=== PATIENT | female | born 1990 | race Asian ===

== ENCOUNTER 2020-02-01 05:12 | Emergency (ER) | payer OTHER ==
[~2020-02-01] VITALS: Ht 137.2 cm; Wt 40.8 kg
[~2020-02-01 05:12] MED LIST: IBUP800 PO; Percocet 5-3251 EACH PO; Verotin-Gr Cap1 EACH PO
[2020-02-01 06:16] LABS: BASOPHILS ABSOLUTE AUTO 0.07 K/mm3 (0.00-0.23); BASOPHILS PERCENT AUTO 1 % (0-2); EOSINOPHILS ABSOLUTE AUTO 0.31 K/mm3 (0.00-0.68); EOSINOPHILS PERCENT AUTO 6 % (0-6); Hematocrit 40.4 % (33.0-51.0); Hemoglobin 13.6 g/dL (11.5-16.0); IMMATURE GRAN ABSOLUTE AUTO 0.02 K/mm3 (0.00-0.10); IMMATURE GRAN PERCENT AUTO 0 % (0-1); LYMPHOCYTES PERCENT AUTO 30 % (21-46); MONOCYTES ABSOLUTE AUTO 0.42 K/mm3 (0.16-1.47); MONOCYTES PERCENT AUTO 8 % (4-13); Mean Corpuscular HGB 29.5 pg (26.0-34.0); Mean Corpuscular HGB Conc 33.7 g/dL (31.5-36.5); Mean Corpuscular Volume 88 fL (80-100); Mean Platelet Volume 10.9 fL (9.1-12.4); NEUTROPHILS ABSOLUTE AUTO 2.75 K/mm3 (1.96-9.15); NEUTROPHILS PERCENT AUTO 54 % (41-73); Platelet Count 248 K/mm3 (150-400); RDW Coefficient Variation 11.5 % (11.7-14.2); RDW Standard Deviation 36.6 fL (35.1-46.3); Red Blood Cell Count 4.61 M/mm3 (3.80-5.20); White Blood Cell Count 5.07 K/mm3 (4.00-11.30)
[2020-02-01 06:28] LABS: Alanine Aminotransfer (ALT/SGP 32 U/L (12-78); Albumin, Blood 4.1 g/dL (3.4-5.0); Albumin/Globulin Ratio 1.2 (0.8-1.8); Alk Phos 90 U/L (50-136); Anion Gap 5 mmol/L (6-16); Aspartate Aminotrans (AST/SGOT 32 U/L (12-37); Bilirubin, Total 0.2 mg/dL (0.1-1.0); Blood Urea Nitrogen 14 mg/dL (8-24); Bun/Creatinine Ratio 17.8 (12.0-20.0); CO2, Blood 28 mmol/L (21-32); Calcium, Blood 8.7 mg/dL (8.5-10.1); Chloride, Blood 107 mmol/L (98-108); Creatinine, Blood 0.79 mg/dL (0.40-1.00); Globulin, Blood 3.4 g/dL (2.2-4.0); Glomerular Filtration Rate >60 (60-); Glucose, Blood 89 mg/dL (70-99); Potassium, Blood 3.8 mmol/L (3.5-5.5); Sodium, Blood 140 mmol/L (136-145); Total Protein, Blood 7.5 g/dL (6.4-8.2)
[2020-02-01 06:44] LABS: Source, Urine Voided
[2020-02-01 06:51] LABS: Bilirubin, Urine Neg (Neg); Blood, Urine 3+ (Neg); Glucose Qualitative, Urine Neg (Neg); Ketones, Urine Neg (Neg); Leukocyte Esterase, Urine Neg (Neg); Nitrite, Urine Neg (Neg); Protein, Urine Neg (Neg); Urobilinogen, Urine NORM (Normal)
[2020-02-01 07:06] LABS: Appearance, Urine Clear (Clear); Color, Urine Yellow (P-Yellow)
[2020-02-01 07:08] LABS: Bacteria Mod /hpf; Squamous Epithelial Cells Few /hpf (Few); White Blood Cells, Urine 0-2 /hpf (0-5)
== END 2020-02-01 07:29 | disposition home or self-care (01) ==
LOC: ER 05:12
PROVIDERS: Emergency Medicine
DX: R10.84 Generalized abdominal pain (principal); R10.32 Left lower quadrant pain
CPT/HCPCS: 36415; 80053; 81001; 81025; 85025; 87086; 96361; 96374; 99284-25; J2405; J7030

== ENCOUNTER 2022-09-23 06:47 | Emergency (ER) | payer OTHER ==
[~2022-09-23] VITALS: Ht 134.6 cm; Wt 44.9 kg
[2022-09-23 08:58] LABS: Influenza A, PCR NEGATIVE (NEGATIVE); Influenza B, PCR NEGATIVE (NEGATIVE); Resp Syncytial Virus, PCR NEGATIVE (NEGATIVE); SARS-Cov-2 (COVID-19) PCR, MMC NEGATIVE (NEGATIVE)
[2022-09-23] MEDS ORDERED: METO10 PO (09:11)
== END 2022-09-23 09:21 | disposition home or self-care (01) ==
LOC: ER 06:47
PROVIDERS: Student in an Organized Health Care Education/Training Program
DX: O99.511 Diseases of the respiratory system complicating pregnancy, first trimester (principal); J06.9 Acute upper respiratory infection, unspecified; O98.511 Other viral diseases complicating pregnancy, first trimester; B34.9 Viral infection, unspecified; O99.891 Other specified diseases and conditions complicating pregnancy; R51.9 Headache, unspecified; Z20.822 Contact with and (suspected) exposure to COVID-19; Z3A.11 11 weeks gestation of pregnancy
CPT/HCPCS: 0241U; A9270

== ENCOUNTER 2023-04-06 21:59 | Inpatient (IN) | payer OTHER ==
[~2023-04-06] VITALS: Ht 147.3 cm; Wt 56.8 kg
[~2023-04-06 21:59] MED LIST changes: +METO10 PO
[2023-04-06 22:16] VITALS: BP 107/59
[2023-04-07] VITALS (50 sets, daily range): BP systolic 40–138; BP diastolic 20–112
[2023-04-07 00:02] LABS: BASOPHILS ABSOLUTE AUTO 0.04 K/mm3 (0.00-0.23); BASOPHILS PERCENT AUTO 1 % (0-2); EOSINOPHILS ABSOLUTE AUTO 0.17 K/mm3 (0.00-0.68); EOSINOPHILS PERCENT AUTO 2 % (0-6); Hematocrit 34.8 % (33.0-51.0); Hemoglobin 11.9 g/dL (11.5-16.0); IMMATURE GRAN ABSOLUTE AUTO 0.07 K/mm3 (0.00-0.10); IMMATURE GRAN PERCENT AUTO 1 % (0-1); LYMPHOCYTES ABSOLUTE AUTO 1.53 K/mm3 (0.84-5.20); LYMPHOCYTES PERCENT AUTO 22 % (21-46); MONOCYTES ABSOLUTE AUTO 0.72 K/mm3 (0.16-1.47); MONOCYTES PERCENT AUTO 10 % (4-13); Mean Corpuscular HGB 29.8 pg (26.0-34.0); Mean Corpuscular HGB Conc 34.2 g/dL (31.5-36.5); Mean Corpuscular Volume 87 fL (80-100); Mean Platelet Volume 11.4 fL (9.1-12.4); NEUTROPHILS ABSOLUTE AUTO 4.46 K/mm3 (1.96-9.15); NEUTROPHILS PERCENT AUTO 64 % (41-73); Platelet Count 177 K/mm3 (150-400); RDW Coefficient Variation 12.5 % (11.7-14.2); RDW Standard Deviation 39.9 fL (35.1-46.3); White Blood Cell Count 6.99 K/mm3 (4.00-11.30)
[2023-04-07] MEDS ORDERED: PRENATAL TABLE1 EAC2 PO (00:12)
[2023-04-07 02:57] LABS: BASOPHILS ABSOLUTE AUTO 0.08 K/mm3 (0.00-0.23); BASOPHILS PERCENT AUTO 1 % (0-2); EOSINOPHILS ABSOLUTE AUTO 0.09 K/mm3 (0.00-0.68); EOSINOPHILS PERCENT AUTO 1 % (0-6); Hematocrit 23.1 % (33.0-51.0); Hemoglobin 7.8 g/dL (11.5-16.0); IMMATURE GRAN ABSOLUTE AUTO 0.13 K/mm3 (0.00-0.10); IMMATURE GRAN PERCENT AUTO 1 % (0-1); LYMPHOCYTES ABSOLUTE AUTO 2.36 K/mm3 (0.84-5.20); LYMPHOCYTES PERCENT AUTO 17 % (21-46); MONOCYTES ABSOLUTE AUTO 0.79 K/mm3 (0.16-1.47); MONOCYTES PERCENT AUTO 6 % (4-13); Mean Corpuscular HGB 30.2 pg (26.0-34.0); Mean Corpuscular HGB Conc 33.8 g/dL (31.5-36.5); Mean Corpuscular Volume 90 fL (80-100); Mean Platelet Volume 11.3 fL (9.1-12.4); NEUTROPHILS ABSOLUTE AUTO 10.83 K/mm3 (1.96-9.15); NEUTROPHILS PERCENT AUTO 76 % (41-73); Platelet Count 175 K/mm3 (150-400); RDW Coefficient Variation 12.7 % (11.7-14.2); Red Blood Cell Count 2.58 M/mm3 (3.80-5.20); White Blood Cell Count 14.28 K/mm3 (4.00-11.30)
--- NOTE | 2023-04-07 03:09 | NUR ---
LATE ENTRY: SUMMARY: PLACENTA DELIVERS AT 0220, 56 MIN AFTER DELIVERS. RETAINED PIECE OF PLACENTA IS NOTED BY PROVIDER AND ADDITIONAL HELP IS CALLED TO THE BEDSIDE. DR LUCAS, ANESTHESIA, AND OR TEAM ARE CALLED IN AND OVEN LOADER IS CALLED FOR ADDITIONAL ASSISTANCE. 2ND IV IS PLACED VIA US WHILE PITOCIN AND LR ARE BOLUSED. PT'S MENTATION CHANGES, BUT SHE CONTINUES TO RESPOND TO VOICE. WARM BLANKETS AND BEAR HUGGER FOR WARMTH. BLOOD TRANSFUSION STARTED AND ADDITIONAL UNITS ARE ORDERED BY PROVIDER. SEE OVEN LOADER RECORD. PT IS TRANSPORTED TO OR VIA HOSPITAL BED.
--- NOTE | 2023-04-07 04:19 | NUR ---
LATE ENTRY: PT ARRIVES TO ICU 16 FOR PACU RECOVERY FOLLOWING SURGERY FOR UTERINE INVERSION. REPORT IS RECEIVED FROM DR. HARVEY. PT IS PALCED ON MONITORS AND BLEEDING IS ASSESSED. SCANT BLEEDING FROM VAGINA NOTED. BEAR HUGGER PLACED.
--- NOTE | 2023-04-07 04:53 | NUR ---
LATE ENTRY: DR LUCAS CALLED FOR ORDER CLARIFICATION. NEW ORDERS RECEIVED.
--- NOTE | 2023-04-07 05:49 | NUR ---
LATE ENTRY: DR LUCAS CALLED FOR ORDER CLARIFICATION FOR BLOOD PRODUCTS. WILL GIVE 4TH UNIT PRBC'S, AND 2 UNITS FFP.
[2023-04-07 06:21] LABS: BASOPHILS ABSOLUTE AUTO 0.04 K/mm3 (0.00-0.23); BASOPHILS PERCENT AUTO 0 % (0-2); EOSINOPHILS ABSOLUTE AUTO 0.01 K/mm3 (0.00-0.68); EOSINOPHILS PERCENT AUTO 0 % (0-6); Hematocrit 32.6 % (33.0-51.0); IMMATURE GRAN ABSOLUTE AUTO 0.31 K/mm3 (0.00-0.10); IMMATURE GRAN PERCENT AUTO 2 % (0-1); LYMPHOCYTES ABSOLUTE AUTO 0.69 K/mm3 (0.84-5.20); LYMPHOCYTES PERCENT AUTO 4 % (21-46); MONOCYTES ABSOLUTE AUTO 0.95 K/mm3 (0.16-1.47); MONOCYTES PERCENT AUTO 5 % (4-13); Mean Corpuscular HGB 29.4 pg (26.0-34.0); Mean Corpuscular HGB Conc 33.7 g/dL (31.5-36.5); Mean Corpuscular Volume 87 fL (80-100); Mean Platelet Volume 11.7 fL (9.1-12.4); NEUTROPHILS ABSOLUTE AUTO 17.69 K/mm3 (1.96-9.15); NEUTROPHILS PERCENT AUTO 90 % (41-73); Platelet Count 94 K/mm3 (150-400); RDW Coefficient Variation 14.5 % (11.7-14.2); RDW Standard Deviation 46.1 fL (35.1-46.3); Red Blood Cell Count 3.74 M/mm3 (3.80-5.20); White Blood Cell Count 19.69 K/mm3 (4.00-11.30)
[2023-04-07 06:33] LABS: Calcium, Blood 6.4 mg/dL (8.5-10.1)
[2023-04-07 06:36] LABS: Magnesium, Blood 1.1 mg/dL (1.6-2.4)
[2023-04-07 07:14] LABS: International Normalized Ratio 1.07; Prothrombin Time Results 11.2 Sec (9.7-11.5)
--- NOTE | 2023-04-07 09:13 | NUR ---
4th UNIT OF BLOOD ALMOST FINISHED AND 2 UNITS OF FFP IN. PT NOW AWAKE AND SITTING UP IN BED EATING BREAKFAST. PT HAS NO COMPLAINTS AT THIS TIME AND STATES SHE IS FEELING PRETTY GOOD. DENIES PAIN AT THIS TIME. BABY IN NURSERY FOR MOTHER TO REST WHILE FOB IS GONE.
[2023-04-07 15:26] LABS: BASOPHILS ABSOLUTE AUTO 0.03 K/mm3 (0.00-0.23); BASOPHILS PERCENT AUTO 0 % (0-2); EOSINOPHILS PERCENT AUTO 0 % (0-6); Hematocrit 27.2 % (33.0-51.0); Hemoglobin 9.8 g/dL (11.5-16.0); IMMATURE GRAN ABSOLUTE AUTO 0.13 K/mm3 (0.00-0.10); IMMATURE GRAN PERCENT AUTO 1 % (0-1); LYMPHOCYTES ABSOLUTE AUTO 0.89 K/mm3 (0.84-5.20); LYMPHOCYTES PERCENT AUTO 5 % (21-46); MONOCYTES ABSOLUTE AUTO 1.31 K/mm3 (0.16-1.47); MONOCYTES PERCENT AUTO 8 % (4-13); Mean Corpuscular HGB 29.4 pg (26.0-34.0); Mean Platelet Volume 11.6 fL (9.1-12.4); NEUTROPHILS ABSOLUTE AUTO 14.83 K/mm3 (1.96-9.15); NEUTROPHILS PERCENT AUTO 86 % (41-73); Platelet Count 92 K/mm3 (150-400); RDW Coefficient Variation 14.7 % (11.7-14.2); RDW Standard Deviation 43.3 fL (35.1-46.3); Red Blood Cell Count 3.33 M/mm3 (3.80-5.20); White Blood Cell Count 17.19 K/mm3 (4.00-11.30)
[2023-04-07 15:29] LABS: Mean Corpuscular Volume 82 fL (80-100)
[2023-04-07 15:47] LABS: Albumin/Globulin Ratio 0.8 (0.8-1.8); Bilirubin, Total 0.4 mg/dL (0.1-1.0); Creatinine, Blood 0.82 mg/dL (0.40-1.00); Globulin, Blood 2.4 g/dL (2.2-4.0); Magnesium, Blood 1.7 mg/dL (1.6-2.4); Potassium, Blood 3.8 mmol/L (3.5-5.5); Total Protein, Blood 4.3 g/dL (6.4-8.2)
[2023-04-07 16:23] LABS: Albumin, Blood 1.9 g/dL (3.4-5.0)
--- NOTE | 2023-04-07 17:29 | NUR ---
DR LUCAS AT BEDSIDE. REVEIWED LABS. NO NEW ORDERS RECEIVED. MAY TAKE OUT ACOSTA TONIGHT OR AM WHICHEVER PT DESIRES. NO COMPLAINTS AND DENIES PAIN. FAMILY AT BEDSDIE VISITING.
[2023-04-08] VITALS (9 sets, daily range): BP systolic 88–161; BP diastolic 50–117
[2023-04-08 06:12] LABS: BASOPHILS ABSOLUTE AUTO 0.05 K/mm3 (0.00-0.23); BASOPHILS PERCENT AUTO 0 % (0-2); EOSINOPHILS ABSOLUTE AUTO 0.13 K/mm3 (0.00-0.68); EOSINOPHILS PERCENT AUTO 1 % (0-6); Hematocrit 27.7 % (33.0-51.0); Hemoglobin 9.7 g/dL (11.5-16.0); IMMATURE GRAN ABSOLUTE AUTO 0.15 K/mm3 (0.00-0.10); IMMATURE GRAN PERCENT AUTO 1 % (0-1); LYMPHOCYTES ABSOLUTE AUTO 1.84 K/mm3 (0.84-5.20); LYMPHOCYTES PERCENT AUTO 11 % (21-46); MONOCYTES PERCENT AUTO 6 % (4-13); Mean Corpuscular HGB 29.2 pg (26.0-34.0); Mean Corpuscular Volume 83 fL (80-100); NEUTROPHILS ABSOLUTE AUTO 12.95 K/mm3 (1.96-9.15); NEUTROPHILS PERCENT AUTO 80 % (41-73); Platelet Count 100 K/mm3 (150-400); RDW Coefficient Variation 15.2 % (11.7-14.2); RDW Standard Deviation 45.6 fL (35.1-46.3); Red Blood Cell Count 3.32 M/mm3 (3.80-5.20); White Blood Cell Count 16.12 K/mm3 (4.00-11.30)
[2023-04-08 06:32] LABS: Albumin, Blood 1.9 g/dL (3.4-5.0); Albumin/Globulin Ratio 0.7 (0.8-1.8); Bilirubin, Total 0.2 mg/dL (0.1-1.0); Bun/Creatinine Ratio 13.8 (12.0-20.0); Calcium, Blood 7.7 mg/dL (8.5-10.1); Creatinine, Blood 0.8 mg/dL (0.40-1.00); Globulin, Blood 2.7 g/dL (2.2-4.0); Magnesium, Blood 1.6 mg/dL (1.6-2.4); Potassium, Blood 3.4 mmol/L (3.5-5.5); Total Protein, Blood 4.6 g/dL (6.4-8.2)
--- NOTE | 2023-04-08 09:47 | NUR ---
04/08/23 0947 Delaney Carter VERIFICATIONS: EDIT CHART.
[2023-04-08] MEDS ORDERED: IBUP800 PO (12:28)
--- NOTE | 2023-04-08 14:30 | NUR ---
MENG PARRISH UPDATED ON DEPRESSION SCREEN SCORE OF 11
--- NOTE | 2023-04-08 17:00 | NUR ---
Assumed care from Bebe Floyd.
[2023-04-09 03:25] VITALS: BP 128/68
[2023-04-09 07:14] VITALS: BP 116/63
[2023-04-09 12:35] VITALS: BP 109/58
--- NOTE | 2023-04-09 12:40 | NUR ---
DISCHARGE INSTRUCTIONS SIGNED, QUESTIONS ANSWERED.
[2023-04-09 14:12] VITALS: BP 117/59
== END 2023-04-09 14:57 | disposition home or self-care (01) | DRG 768 ==
LOC: OBS 21:59 → BC 21:59 → OBS 23:36 → BC 23:37 → ICUW 04-07 04:15 → BC 04-07 06:24
PROVIDERS: Obstetrics & Gynecology; ADMIT Nurse Practitioner Obstetrics & Gynecology
PROC: 3E033VJ Introduction of Other Hormone into Peripheral Vein, Percutaneous Approach (ICD-10-PCS; 2023-04-07)
PROC: 10E0XZZ Delivery of Products of Conception, External Approach (ICD-10-PCS; principal; 2023-04-07 03:30)
PROC: 0US97ZZ Reposition Uterus, Via Natural or Artificial Opening (ICD-10-PCS; 2023-04-09)
PROC: 0KQM0ZZ Repair Perineum Muscle, Open Approach (ICD-10-PCS; 2023-04-09)
DX: O73.1 Retained portions of placenta and membranes, without hemorrhage (principal); Z37.0 Single live birth; D62 Acute posthemorrhagic anemia; O72.1 Other immediate postpartum hemorrhage; O70.1 Second degree perineal laceration during delivery; O99.02 Anemia complicating childbirth; D64.89 Other specified anemias; O34.53 Maternal care for retroversion of gravid uterus; Z3A.38 38 weeks gestation of pregnancy; Z67.40 Type O blood, Rh positive
CPT/HCPCS: 36415; 36430; 59025; 80053; 82310; 83605; 83735; 85025; 85384; 85610; 85730; 86850; 86900; 86901; 86920; 86922; 88307; 90707; 94760; 96372; A9270; J0690; J0694; J1100; J2210; J2370; J2405; J2590; J2704; J3010; J3475; J7030; J7050; J7120; P9016; P9059

== ENCOUNTER → 2025-03-06 | Outpatient (CLI) | payer OTHER ==
[~2025-03-06] MED LIST changes: +PRENATAL TABLE1 EAC2 PO
== END ==
LOC: LAB SHORT 08:48 → LAB 08:48
DX: D22.9 Melanocytic nevi, unspecified (principal)
CPT/HCPCS: 88305